=== PATIENT | female | born 1940 | race Caucasian/White ===

== ENCOUNTER → 2020-03-10 10:35 | Outpatient (CLI) | payer OTHER, SELFPAY ==
--- NOTE | ~2020-03-10 | DEXA_ITS ---
Bone Density Report Name: Mackenzie Collazo Age: 79 Sex: Female Ethnicity: White Date of : 1940 Indication: postmenopausal; screening for osteoporosis; height loss; hysterectomy; Referring Provider: Jacklyn, Dedrick Winn Study: Bone densitometry was performed. Exam Date: March 10, 2020 Accession number: [id number] Bone Density: Region BMD T-score Z-score Classification AP Spine (L1, L2) 1.106 1.2 3.6 Normal Femoral Neck (Left) 0.749 -0.9 1.4 Normal Total Hip (Left) 0.922 -0.2 1.9 Normal World Health Organization criteria for BMD impression classify patients as: Normal (T-score at or above -1.0), Osteopenia (T-score between -1.0 and -2.5), or Osteoporosis (T-score at or below -2.5). 10-year Fracture Risk: FRAX not reported because: All T-scores for Spine Total, Hip Total, Femoral Neck at or above -1.0 Clinical Information Provided by Patient: Has used the following medications: Vitamin D Has the following medical conditions: Hysterectomy Patient maximum height was 64.5 Menopause Age: 33 Does not regularly consume dairy products Drinks caffeinated beverages Onset of menses at age 13 Number of children 3 Impression: The patient has normal bone mass. Discussion: BONE DENSITY IS ABOVE THE MINIMUM DESIRABLE LEVEL AT ALL SKELETAL SITES TESTED. This patient?s bone mineral density is above the minimum desirable level (T-score -1.0 or better) at all sites measured. The patient should follow a healthful lifestyle (good nutrition with adequate calcium and vitamin D, and appropriate weight-bearing exercise). Follow-Up: Consider repeating this study in 5 years or sooner if there is some new clinical indication. Reported by: JAZLYN on 03/10/2020 10:55:00 AM. Reviewed, dictated and finalized at location [facility]
== END ==
PROVIDERS: PCP Family Medicine; Visit Provider Neurological Surgery
DX: M81.0 Age-related osteoporosis without current pathological fracture (principal)
CPT/HCPCS: 77080

== ENCOUNTER 2021-12-14 10:25 | Outpatient (CLI) | payer OTHER, SELFPAY ==
--- NOTE | 2021-12-14 10:34 | ECG_ITS ---
Measurements Intervals [place] Rate: 74 P: 49 PA: 181 QRS: -2 QRSD: 97 T: 23 QT: 359 QTc: 399 Interpretive Statements SINUS RHYTHM NORMAL ECG NO PREVIOUS ECG AVAILABLE FOR COMPARISON Electronically Signed On 12-14-2021 13:55:51 CDT by Mustapha Lemons M.D.
== END 2021-12-14 10:26 | disposition home or self-care (01) ==
LOC: ANHSURGERY 10:29
PROVIDERS: PCP Family Medicine; Visit Provider Neurological Surgery
DX: M54.9 Dorsalgia, unspecified (principal); G89.29 Other chronic pain; Z01.818 Encounter for other preprocedural examination
CPT/HCPCS: 36415; 86850; 86900; 86901; 93005

== ENCOUNTER 2021-12-19 01:56 | Day surgery (SDC) | payer OTHER, SELFPAY ==
--- NOTE | 2021-12-05 09:36 | PC.NURSE ---
Report to the Outpatient Waiting Room, entrance under the green pavilion located off [facility], at time _0900 on date __12/19/21 . OR Time: __1100 . Time changes happen often and if your time is changed the preop area will call you the afternoon before. - You and your visitor will be asked to self-screen and do not enter if you have any COVID symptoms. - We encourage only one visitor and NO visitors under age 16 are allowed at this time. Your visitor will receive communication by the phone number that is given day of service. - The patient visitor is requested to social distance or may leave the building when not with patient due to restrictions. - A mask is required within the hospital. Patients may have clear liquids (water, carbonated beverages, clear teas, apple juice) until 3 hours prior to surgery with a maximum of 20 ounces. - No food from midnight until time of surgery - Infants may have breast milk until 4 hours before surgery, formula 6 hours prior to surgery. - Children will be allowed to drink immediately following surgery. If applicable, please bring a bottle or sippy cup to assist with drinking. Juice, water, soda, and popsicles are readily available. For infants on formula, please bring formula the day of surgery. Pacifiers are allowed. Take the following medications with a SIP of water the morning of surgery: ____SERTRALINE Medications to discontinue per physician __PT TO CALL DR TOMPKINS REGARDING MELOXICAM . ALL VITAMINS 3 DAYS PRE OP Date to take last dose___12/15/21 Please no make-up, nail kazakh, hairspray, perfume, deodorant, or body powder the day of surgery. No jewelry (including any body piercings) or valuables the day of surgery, leave them at home. Please take a shower or bath the night before, or the morning of, surgery with an antibacterial soap. Wear comfortable, loose fitting clothing. Children are encouraged to wear pajamas. - Jewelry must be removed prior to entering the operating room. Rings and piercings that are not removed may be cut off. - The hospital will not accept responsibility for valuables. - Please leave all valuables, including medications, at home the day of surgery. If you are going home after surgery, a licensed bobtail driver must drive you home. - NO public transportation without another adult. - We recommend that an adult stay with you for 24 hours following discharge. - We also recommend that you do not drive, make important decision, drink alcoholic beverages, or take any drugs that were not prescribed by your health care provider for at least 24 hours after your discharge time. For Pediatric surgeries, we recommend two adults accompany the child home. Follow any additional instructions given to you from your surgeon. If you or anyone in your household have experienced Covid symptoms in the past week, please notify your surgeon or the nurse liaison at the phone number below for possible testing. Telephone instructions given to ____PATIENT and asked if any additional questions and then verbalized understanding. Patient advised to call surgeon office or pre surgery nurse liaison [phone] if any additional questions.
[2021-12-05 09:45] VITALS: BMI 28.3
[2021-12-19] VITALS (9 sets, daily range): BP systolic 109–140; BP diastolic 54–71; PULSE 76–98; RESP 14–18; TEMP 36.4–36.8; O2SAT 93–100; BMI 27.9
--- NOTE | ~2021-12-19 | XR_ITS ---
EXAMINATION: XR fluoroscopy no charge DATE: 12/19/2021 11:39 INDICATION: Dorsal column stimulator with lead and generator placement. TECHNIQUE: 2 fluoroscopic images of the thoracic spine were obtained during procedure performed by Dr Maribeth Villasenor. Radiologist was not present for the imaging or procedure. The amount of fluoroscopy time used during this procedure was 0.2 minutes. COMPARISON: None. FINDINGS: Limited [id number] of the lower thoracic spine. Soft tissue retractors are seen on either side of a spinal stimulator is present which projects over the central canal of the lower third thoracic spin e. There are insufficient landmarks to assess for the specific level. IMPRESSION: 1. Fluoroscopy utilized during spinal stimulator lead placement at the lower thoracic spine. See proc edure note for further detail. Reviewed, dictated and finalized at location A. IMPRESSION: 1. Fluoroscopy utilized during spinal stimulator lead placement at the lower th oracic spine. See procedure note for further detail.
[2021-12-19] MEDS: LACTATED RINGERS 1,000 ML 30 ML IV CONT ×2 (09:30→12:00)
--- NOTE | 2021-12-19 09:38 | WPDANESEPPF ---
Anes - Initial Pre Proc Eval Procedure: Operation Date: 12/19/21 11:00 Proposed Procedures p Placement of Dorsal Column Stimulator Lead and Generator - Dedrick Villasenor MD Date/Time: 12/19/21 09:38 Surgeon: Dedrick Villasenor MD Pre Op Diagnosis: Chronic Back and Leg Pain Patient Data Age: 81 Gender: F Height: 1.57 m Weight: 70.35 kg Allergies Allergy/AdvReac Type Severity Reaction Status Date / Time No Known Allergies Allergy Verified 12/19/21 09:17 Home Medications Medication Instructions Recorded Confirmed Type diphenhydramine HCl 50 mg capsule 50 mg PO PRN PRN Insomnia 11/07/21 12/05/21 History famotidine 20 mg tablet 20 mg PO BID 11/07/21 12/05/21 History fenofibrate 160 mg tablet 160 mg PO DAILY 11/07/21 12/05/21 History fluticasone propionate 50 1 spray intranasal PRN PRN Allergy 11/07/21 12/05/21 History mcg/actuation nasal Symptoms spray,suspension (Allergy Relief (fluticasone)) lisinopril 10 mg tablet 10 mg PO DAILY 11/07/21 12/05/21 History meloxicam 15 mg tablet 15 mg PO DAILY 11/07/21 12/19/21 History multivitamin 1 tablet PO DAILY 11/07/21 12/19/21 History oxybutynin chloride 5 mg 5 mg PO DAILY 11/07/21 12/05/21 History tablet,extended release 24 hr pantoprazole 40 mg tablet,delayed 40 mg PO QAM 11/07/21 12/05/21 History release pravastatin 40 mg tablet 40 mg PO DAILY 11/07/21 12/05/21 History sertraline 25 mg tablet 25 mg PO DAILY 11/07/21 12/19/21 History acetaminophen 500 mg capsule 500 mg PO Q6H PRN Pain 12/05/21 12/05/21 History diphenhydramine 25 1 tablet PO HS PRN Insomnia 12/05/21 12/05/21 History mg-acetaminophen 500 mg tablet (Tylenol PM Extra Strength) Patient hx anesthesia problems: none Family hx anesthesia problems: none Results Review: All pre-operative results and documents have been reviewed as part of the pre-operative evaluation. [facility] Past Medical History Medical History (Updated 12/19/21 @ 09:39 by Marito Ortiz MD) Chronic back pain Chronic GERD Chronic leg pain Depression HTN (hypertension) Hyperlipidemia Osteoarthritis Ovarian tumor Pain in right hip PONV (postoperative nausea and vomiting) Postlaminectomy syndrome, not elsewhere classified Radiculopathy, cervical region Radiculopathy, lumbar region Spondylosis without myelopathy or radiculopathy, lumbar region Surgical History Surgical History H/O: hysterectomy History of hip replacement Hx of tonsillectomy Previous back surgery Social History Social History Smoking packs per day: 1 Smoking cigarettes per day: 20.0 Years smoked: 20 Smoking pack-years: 20.00 Smoking status: Former smoker Tobacco type: cigarettes Smoking end date: 02/26/89 Alcohol intake: current Alcohol use details: rarely Substance use: never Living arrangements: with family Spiritual care concerns: No Anes - Eval Final PreProcedure Day of Procedure 12/19/21 09:38 Patient weight: overweight Heart: regular rate and rhythm Lungs: clear to auscultation and normal air movement Airway: Mallampati scale class II Neurological: alert and oriented Last oral intake: >/= 8 hours ASA classification: II Emergent: no Anesthetic plan: proceed Anesthesia type and monitoring: general ETT Results Review: All pre-operative results and documents have been reviewed as part of the pre-operative evaluation. Informed Consent: The patient's anesthetic plan and its attendant risks and benefits were discussed with the patient/family/POA. Questions were solicited and answers provided to the satisfaction of the patient/family/POA.
--- NOTE | 2021-12-19 10:27 | PM.IMHP ---
H&P: HPI History of Present Illness Date/Time: 12/19/21 10:27 Chief Complaint: Back and leg pain Narrative: Mackenzie is an 81-year-old female with back and leg pain that responded to successful dorsal column stimulator trialing and presents now for permanent implantation. She has not changed since we saw her last. She does not have specific muscle group weakness. She has occasional numbness. She is not having bowel or bladder incontinence related to this. Review of Systems Review of Systems: Patient denies shortness of breath, cough, fever, chills, nausea, vomiting, weight loss, weight gain, chest pain, dysuria. She has back and leg pain as above. The review of systems is otherwise negative on 12 systems except as noted elsewhere. [facility] Past Medical History Medical History (Updated 12/19/21 @ 09:39 by Marito Ortiz MD) Chronic back pain Chronic GERD Chronic leg pain Depression HTN (hypertension) Hyperlipidemia Osteoarthritis Ovarian tumor Pain in right hip PONV (postoperative nausea and vomiting) Postlaminectomy syndrome, not elsewhere classified Radiculopathy, cervical region Radiculopathy, lumbar region Spondylosis without myelopathy or radiculopathy, lumbar region Surgical History Surgical History H/O: hysterectomy History of hip replacement Hx of tonsillectomy Previous back surgery Social History Social History Smoking packs per day: 1 Smoking cigarettes per day: 20.0 Years smoked: 20 Smoking pack-years: 20.00 Smoking status: Former smoker Tobacco type: cigarettes Smoking end date: 02/26/89 Alcohol intake: current Alcohol use details: rarely Substance use: never Living arrangements: with family Spiritual care concerns: No Meds Home Medications and Allergies Home Medications Medication Instructions Recorded Confirmed Type diphenhydramine HCl 50 mg capsule 50 mg PO PRN PRN Insomnia 11/07/21 12/05/21 History famotidine 20 mg tablet 20 mg PO BID 11/07/21 12/05/21 History fenofibrate 160 mg tablet 160 mg PO DAILY 11/07/21 12/05/21 History fluticasone propionate 50 1 spray intranasal PRN PRN Allergy 11/07/21 12/05/21 History mcg/actuation nasal Symptoms spray,suspension (Allergy Relief (fluticasone)) lisinopril 10 mg tablet 10 mg PO DAILY 11/07/21 12/05/21 History meloxicam 15 mg tablet 15 mg PO DAILY 11/07/21 12/19/21 History multivitamin 1 tablet PO DAILY 11/07/21 12/19/21 History oxybutynin chloride 5 mg 5 mg PO DAILY 11/07/21 12/05/21 History tablet,extended release 24 hr pantoprazole 40 mg tablet,delayed 40 mg PO QAM 11/07/21 12/05/21 History release pravastatin 40 mg tablet 40 mg PO DAILY 11/07/21 12/05/21 History sertraline 25 mg tablet 25 mg PO DAILY 11/07/21 12/19/21 History acetaminophen 500 mg capsule 500 mg PO Q6H PRN Pain 12/05/21 12/05/21 History diphenhydramine 25 1 tablet PO HS PRN Insomnia 12/05/21 12/05/21 History mg-acetaminophen 500 mg tablet (Tylenol PM Extra Strength) Allergies Allergy/AdvReac Type Severity Reaction Status Date / Time No Known Allergies Allergy Verified 12/19/21 09:17 Vital Signs Vital Signs - 24 hr 12/19/21 09:05 Temperature 97.5 F L Pulse Rate 83 Respiratory Rate 14 Blood Pressure 138/57 L Pulse Oximetry 99 Oxygen Delivery Room Air Exam Neuro: Other: Strength is 5/5 in all muscle groups of the bilateral lower extremities. Sensation is intact to light touch throughout the lower extremities. Clear to auscultation Regular rate and rhythm Assessment and Plan Assessment and plan (1) Chronic leg pain: Code(s): M79.606 - Pain in leg, unspecified; G89.29 - Other chronic pain Status: Acute (2) Chronic back pain: Code(s): M54.9 - Dorsalgia, unspecified; G89.29 - Other chronic pain Status: Acute Jamin Mann is an 81-year-old female
--- NOTE | 2021-12-19 10:29 | WPDHPUPDATE1 ---
History and Physical Update Update Date/Time: 12/19/21 10:29 History and Physical has been reviewed, including an updated exam of the patient. There are NO changes in the patient's condition. Risks, benefits, and alternatives have been discussed and questions answered. Patient agrees to proceed with procedure.
[2021-12-19] MEDS: ceFAZolin 2 GM/D5W 50 ML 2 GM/50 ML BAG IVPB (10:39)
[2021-12-19] MEDS: BUPIVACAINE/EPINEPHRINE 0.25% 50 ML VIAL 10 ML INFILTRATE (11:37)
[2021-12-19] MEDS: VANCOMYCIN HCL 1,000 MG VIAL 500 MG TOPICAL (11:58)
--- NOTE | 2021-12-19 12:04 | P.OP_ITS ---
Procedure Note - Detailed Date of Procedure 12/19/21 Pre-op Diagnosis Chronic Back and Leg Pain Post-op Diagnosis Same Procedure Performed Placement of dorsal column stimulator lead and generator Surgeon Dedrick Villasenor MD Equipment Maintenance Supervisor Kristen Anesthesia General Indications Mackenzie is an 81-year-old female with back and leg pain that responded to a successful dorsal column stimulator trial and presents now for permanent implantation. Description of Procedure Mackenzie was brought to the operating room in the supine position, was sedated, intubated and placed under general anesthesia in routine fashion. She was then turned into the prone position on a Mikey frame. The of operation her back was examined, marked for incision, prepped and draped in routine sterile fashion. Incision was marked transversely in the left flank and longitudinally in the midline based on the T9 pedicles. These areas were injected with 0.5% lidocaine with [id number] epinephrine. Intravenous antibiotics given prior to incision. Incision was made with a 10 blade scalpel down to the lumbodorsal fascia. A subperiosteal dissection of the muscle soft tissue away from spinous process and lamina was performed with a subperiosteal elevator and Bovie cautery. A verifying x-rays obtained to verify the level of operation. Laminectomies were performed at T9-10 and T8-9. The lead was then placed into the dorsal epidural space until it was confirmed to be behind the T8 and slightly into the T7 vertebral bodies. An anchor was attached to 1 of the wires which was attached to the superior spinous process using a 3-0 Prolene suture. Tension relief loops were placed in both the wires. At the flank incision a pocket was created 1 cm deep in the tissue using curved Bal scissors and toothed forceps. The wires were then buried to this incision and here inserted into the generator slots and secured there using the small screwdriver for that purpose. All the incisions were copiously irrigated with bacitracin irrigation in all bleeding stopped with bipolar and Bovie cautery and Gelfoam thrombin powder. The generator was then placed in the pocket with excess wire coiled up underneath it and with vancomycin impregnated pellets. The rest of the pelvis were spread above and below the fascia the thoracic incision. The thoracic fascia was closed with 2-0 Vicryl interrupted sutures. Both incisions were closed with 3-0 Vicryl buried interrupted sutures in the dermis and a running 4- 0 Monocryl subcuticular stitch in the skin were dressed with Dermabond and Telfa and Tegaderm dressings. The patient was then allowed to wake up in the operating room in his taken to the recovery room in stable condition. There were no immediate complications of this operation. All counts were reported correct in the case. Blood loss was 10 cc. The patient was neurologically at her baseline postoperatively. Implants Gutiérrez dorsal column stimulator paddle lead and generator Estimated Blood Loss 10 IV Fluids 1,000 Complications None Condition Stable
[2021-12-19] MEDS: fentaNYL CITRATE INJ (*CRX) 100 MCG/2 ML VIAL 25 MCG IV PUSH ×3 (12:28→13:36)
[2021-12-19] MEDS: ONDANSETRON INJ 4 MG/2 ML VIAL IV PUSH (12:40)
[2021-12-19] MEDS: oxyCODONE HCL (*CRX) 5 MG TAB IR PO (13:27)
== END 2021-12-19 14:15 | disposition home or self-care (01) ==
PROVIDERS: PCP Family Medicine; Visit Provider Neurological Surgery
PROC: (CPT 63655; principal; 2021-12-19 11:00)
DX: M54.9 Dorsalgia, unspecified (principal); M79.606 Pain in leg, unspecified; G89.29 Other chronic pain; M47.816 Spondylosis without myelopathy or radiculopathy, lumbar region; M96.1 Postlaminectomy syndrome, not elsewhere classified; I10 Essential (primary) hypertension; E78.5 Hyperlipidemia, unspecified; F32.A Depression, unspecified; Z87.891 Personal history of nicotine dependence
CPT/HCPCS: 63655; 63685; 36415; 86850; 86900; 86901; 93005; 99199; A9270; C1713; C1767; C1778; J0690; J1100; J2405; J2704; J3010; J3370; J7120

== ENCOUNTER 2022-05-18 14:34 | Outpatient (CLI) | payer OTHER, SELFPAY ==
--- NOTE | ~2022-05-18 | MM_ITS ---
EXAMINATION: MM screening [facility] BI w dannie HISTORY: Screening TECHNIQUE: Craniocaudal and mediolateral oblique 3-D tomosynthesis images were obtained and synthetic 2-D images were generated. CAD analysis was submitted and interpreted. COMPARISON: Comparison to multiple prior studies sequentially, with oldest reviewed study dated 03/2019. BREAST PARENCHYMAL COMPOSITION: There are scattered areas of fibroglandular density. FINDINGS: There is no evidence of suspicious mass, calcification, or architectural distortion to sugg est malignancy in either breast. There has been no suspicious interval change. IMPRESSION: 1. No mammographic evidence of malignancy. 2. Recommend routine screening mammography in one year. BI-RADS Category 1: Negative Reviewed, dictated and finalized at location A.
== END 2022-05-18 14:35 | disposition home or self-care (01) ==
LOC: ANHIMG 14:38
PROVIDERS: PCP Family Medicine; Visit Provider Family Medicine
DX: Z12.31 Encounter for screening mammogram for malignant neoplasm of breast (principal)
CPT/HCPCS: 77063; 77067